=== PATIENT | female | born 1950 | race Caucasian/White ===

== ENCOUNTER 2022-11-05 01:51 | Day surgery (SDC) | payer MEDICARE, SELFPAY ==
--- NOTE | 2022-11-02 09:00 | PC.NURSE ---
Report to the Outpatient Waiting Room, entrance under the green pavilion located off [facility], at time __1130 on date __11/05/22 . Planned Procedure Time: _1330 . Time changes happen often and if your time is changed the preop area will call you the afternoon before. - You and your visitor will be asked to self-screen and do not enter if you have any COVID symptoms. - A mask is optional within the hospital at this time. Patients may have clear liquids (water, carbonated beverages, clear teas, apple juice) until 3 hours prior to surgery with a maximum of 20 ounces. - No food from midnight until time of surgery - Infants may have breast milk until 4 hours before surgery, formula 6 hours prior to surgery. - Children will be allowed to drink immediately following surgery. If applicable, please bring a bottle or sippy cup to assist with drinking. Juice, water, soda, and popsicles are readily available. For infants on formula, please bring formula the day of surgery. Pacifiers are allowed. Take the following medications with a SIP of water the morning of surgery: INHALER,LEVOTHYROXINE,LORAZEPAM,METOPROLOL, DO NOT STOP ANY OF YOUR OTHER PRESCRIPTION MEDICATIONS PRIOR TO SURGERY ?EXCEPT THE FOLLOWING Medications to discontinue per physician __PT STATES ASPIRIN 7_PRE OP PER DR GILL.LAST DOSE 10/28/22 Date to take last dose Please no make-up, nail hungarian, hairspray, perfume, deodorant, or body powder the day of surgery. No jewelry (including any body piercings) or valuables the day of surgery, leave them at home. Please take a shower or bath the night before, or the morning of, surgery with an antibacterial soap. Wear comfortable, loose fitting clothing. Children are encouraged to wear pajamas. - Jewelry must be removed prior to entering the operating room. Rings and piercings that are not removed may be cut off. - The hospital will not accept responsibility for valuables. - Please leave all valuables, including medications, at home the day of surgery. If you are going home after surgery, a licensed customer service driver must drive you home. - NO public transportation without another adult if you receive anesthesia. - We recommend that an adult stay with you for 24 hours following discharge. - We also recommend that you do not drive, make important decision, drink alcoholic beverages, or take any drugs that were not prescribed by your health care provider for at least 24 hours after your discharge time. For Pediatric surgeries, we recommend two adults accompany the child home. Follow any additional instructions given to you from your surgeon. If you or anyone in your household have experienced Covid symptoms in the past week, please notify your surgeon or the nurse liaison at the phone number below for possible testing. Telephone instructions given to __PATIENT and asked if any additional questions and then verbalized understanding. Patient advised to call surgeon office or pre surgery nurse liaison [phone] if any additional questions.
[2022-11-02 09:12] VITALS: BMI 36.1
[2022-11-05] VITALS (16 sets, daily range): BP systolic 111–128; BP diastolic 65–83; PULSE 65–85; RESP 16–20; TEMP 36.4–36.8; O2SAT 92–100
--- NOTE | ~2022-11-05 | XR_ITS ---
EXAMINATION: XR fluoroscopy no charge DATE: 11/05/2022 12:30 CDT INDICATION: STIMULATOR TIN ASSORTER PLACEMENT . TECHNIQUE: 5 fluoroscopic images of the cervical spine and thoracic spine were obtained during stimul ator division leader placement performed by the surgeon. I was not present in the operating room. Fluo roscopy exposure time was 12.8 seconds. Air Kerma 9.4761 mGy. DAP 0.1879 mGym2. COMPARISON: None FINDINGS: Lateral views of the cervical spine with skin retractors overlying the soft tissues, document stimula tor lead placement into the cervical canal, tip just inferior to the posterior arch of C1. Frontal vi ews of the thoracic spine with skin retractors over the soft tissues, instrument localization, likely of T9-10. Stimulator lead placement, tip terminating at the superior margin of a lower thoracic vert ebral body, likely T8. IMPRESSION: Fluoroscopic documentation of stimulator division leader placement. Please refer to the operative note for complete procedural details . Reviewed, dictated and finalized at location K.
--- NOTE | 2022-11-05 10:56 | WPDANESEPPF ---
Anes - Initial Pre Proc Eval Procedure: Operation Date: 11/05/22 11:30 Proposed Procedures p Dorsal Column Stimulator Lead and Generator Placement, Cervical and Thoracic - Bharat Aguilar MD Date/Time: 11/05/22 10:56 Surgeon: Bharat Aguilar MD Pre Op Diagnosis: chronic neck and back pain,s/p lumb fusion Patient Data Age: 72 Gender: F Height: 1.6 m Weight: 92.55 kg Allergies Allergy/AdvReac Type Severity Reaction Status Date / Time allopurinol Allergy Unknown Unknown Verified 11/05/22 10:18 morphine AdvReac Confusion Verified 11/05/22 10:18 Home Medications Medication Instructions Recorded Confirmed Type aspirin 81 mg tablet,delayed 81 mg PO DAILY 09/28/22 11/05/22 History release atorvastatin 80 mg tablet 80 mg PO DAILY 09/28/22 11/05/22 History empagliflozin 25 mg tablet 25 mg PO DAILY 09/28/22 11/05/22 History (Jardiance) febuxostat 40 mg tablet (Uloric) 40 mg PO DAILY 09/28/22 11/05/22 History fluticasone fur. 100 mcg-umeclid 1 inh inhalation DAILY 09/28/22 11/05/22 History 62.5 mcg-vilant 25 mcg inhalat.powder (Trelegy Ellipta) fluticasone propionate 50 1 spray intranasal DAILY 09/28/22 11/02/22 History mcg/actuation nasal spray,suspension furosemide 40 mg tablet (Lasix) 40 mg PO QAM 09/28/22 11/05/22 History glimepiride 4 mg tablet (Amaryl) 4 mg PO QAM 09/28/22 11/05/22 History hydrochlorothiazide 12.5 mg capsule 12.5 mg PO DAILY 09/28/22 11/05/22 History ibandronate 150 mg tablet (Boniva) 150 mg PO MONTHLY 09/28/22 11/05/22 History ipratropium 0.5 mg-albuterol 3 mg 3 ml inhalation Q4H PRN Shortness 09/28/22 11/02/22 History (2.5 mg base)/3 mL nebulization Of Breath soln ipratropium 18 mcg-albuterol 103 2 spray inhalation PRN PRN 09/28/22 11/05/22 History mcg/actuation aerosol inhaler Shortness Of Breath lorazepam 0.5 mg tablet (Ativan) 0.5 mg PO TID PRN Anxiety 09/28/22 11/05/22 History losartan 50 mg tablet 50 mg PO DAILY 09/28/22 11/05/22 History metformin 500 mg tablet 500 mg PO TID 09/28/22 11/05/22 History metoprolol tartrate 50 mg tablet 50 mg PO BID 09/28/22 11/05/22 History montelukast 10 mg tablet 10 mg PO DAILY 09/28/22 11/05/22 History nitroglycerin 0.4 mg sublingual 0.4 mg sublingual Q5M PRN Chest 09/28/22 11/02/22 History tablet Pain pantoprazole 40 mg tablet,delayed 40 mg PO QAM 09/28/22 11/05/22 History release paroxetine HCl 30 mg tablet (Paxil) 30 mg PO HS 09/28/22 11/05/22 History tizanidine 2 mg tablet 2 mg PO TID PRN Muscle Spasm 09/28/22 11/05/22 History hydrocodone 7.5 mg-ibuprofen 200 1 tablet PO Q6-8H PRN Pain 11/02/22 11/02/22 History mg tablet levothyroxine 50 mcg tablet 50 mcg PO DAILY 11/02/22 11/05/22 History Patient hx anesthesia problems: none Family hx anesthesia problems: none Results Review: All pre-operative results and documents have been reviewed as part of the pre-operative evaluation. [facility] Past Medical History Medical History (Updated 09/28/22 @ 14:43 by Hannah Dixon) Anxiety Arthritis Asthma COPD (chronic obstructive pulmonary disease) Coronary artery disease Diabetes Diverticulosis Heart attack Heart disease Hypertension Osteopenia Thyroid disorder Family History Family History (Updated 09/28/22 @ 14:58 by Hannah Dixon) Father Hypertension Depression Heart disease Alcoholism Mother Asthma Social History Social History (Updated 09/28/22 @ 14:59 by Hannah Dixon) Smoking status: Never smoker Second hand tobacco smoke exposure: No Alcohol intake: never Substance use: never Lack of Transportation: No Lack of Food: Never True Current Housing: I Have Housing Living arrangements: with family Spiritual care concerns: No Anes - Eval Final PreProcedure Day of Procedure 11/05/22 10:56 Patient weight: obese Airway: Mallampati scale class III ASA classification: III Anesthesia type and monitoring: general ETT and standard monitoring Results Review:
[2022-11-05] MEDS: LACTATED RINGERS 1,000 ML 30 ML IV CONT (11:00)
--- NOTE | 2022-11-05 11:00 | PM.IMHP ---
H&P: HPI History of Present Illness Date/Time: 11/05/22 11:00 Chief Complaint: Valeria is a 72-year-old female with neck arm back and leg pain that responded well dorsal column stimulator but within the cervical and thoracic spine presents for implantation of devices in both locations with either 1 or 2 generator is a. She has not changed appreciably since we last saw her. She does not have specific muscle group weakness or dermatomal numbness. She does not have any bowel or bladder difficulty. Review of Systems Review of Systems: Patient denies shortness of breath, cough, fever, chills, nausea, vomiting, weight loss, weight gain, chest pain, dysuria. She has back and leg as well as neck and arm pain as above. Her review of systems is otherwise negative on 12 systems except as noted elsewhere. [facility] Past Medical History Medical History (Updated 09/28/22 @ 14:43 by Hannah Dixon) Anxiety Arthritis Asthma COPD (chronic obstructive pulmonary disease) Coronary artery disease Diabetes Diverticulosis Heart attack Heart disease Hypertension Osteopenia Thyroid disorder Family History Family History (Updated 09/28/22 @ 14:58 by Hannah Dixon) Father Hypertension Depression Heart disease Alcoholism Mother Asthma Social History Social History (Updated 09/28/22 @ 14:59 by Hannah Dixon) Smoking status: Never smoker Second hand tobacco smoke exposure: No Alcohol intake: never Substance use: never Lack of Transportation: No Lack of Food: Never True Current Housing: I Have Housing Living arrangements: with family Spiritual care concerns: No Meds Home Medications and Allergies Home Medications Medication Instructions Recorded Confirmed Type aspirin 81 mg tablet,delayed 81 mg PO DAILY 09/28/22 11/05/22 History release atorvastatin 80 mg tablet 80 mg PO DAILY 09/28/22 11/05/22 History empagliflozin 25 mg tablet 25 mg PO DAILY 09/28/22 11/05/22 History (Jardiance) febuxostat 40 mg tablet (Uloric) 40 mg PO DAILY 09/28/22 11/05/22 History fluticasone fur. 100 mcg-umeclid 1 inh inhalation DAILY 09/28/22 11/05/22 History 62.5 mcg-vilant 25 mcg inhalat.powder (Trelegy Ellipta) fluticasone propionate 50 1 spray intranasal DAILY 09/28/22 11/02/22 History mcg/actuation nasal spray,suspension furosemide 40 mg tablet (Lasix) 40 mg PO QAM 09/28/22 11/05/22 History glimepiride 4 mg tablet (Amaryl) 4 mg PO QAM 09/28/22 11/05/22 History hydrochlorothiazide 12.5 mg capsule 12.5 mg PO DAILY 09/28/22 11/05/22 History ibandronate 150 mg tablet (Boniva) 150 mg PO MONTHLY 09/28/22 11/05/22 History ipratropium 0.5 mg-albuterol 3 mg 3 ml inhalation Q4H PRN Shortness 09/28/22 11/02/22 History (2.5 mg base)/3 mL nebulization Of Breath soln ipratropium 18 mcg-albuterol 103 2 spray inhalation PRN PRN 09/28/22 11/05/22 History mcg/actuation aerosol inhaler Shortness Of Breath lorazepam 0.5 mg tablet (Ativan) 0.5 mg PO TID PRN Anxiety 09/28/22 11/05/22 History losartan 50 mg tablet 50 mg PO DAILY 09/28/22 11/05/22 History metformin 500 mg tablet 500 mg PO TID 09/28/22 11/05/22 History metoprolol tartrate 50 mg tablet 50 mg PO BID 09/28/22 11/05/22 History montelukast 10 mg tablet 10 mg PO DAILY 09/28/22 11/05/22 History nitroglycerin 0.4 mg sublingual 0.4 mg sublingual Q5M PRN Chest 09/28/22 11/02/22 History tablet Pain pantoprazole 40 mg tablet,delayed 40 mg PO QAM 09/28/22 11/05/22 History release paroxetine HCl 30 mg tablet (Paxil) 30 mg PO HS 09/28/22 11/05/22 History tizanidine 2 mg tablet 2 mg PO TID PRN Muscle Spasm 09/28/22 11/05/22 History hydrocodone 7.5 mg-ibuprofen 200 1 tablet PO Q6-8H PRN Pain 11/02/22 11/02/22 History mg tablet levothyroxine 50 mcg tablet 50 mcg PO DAILY 11/02/22 11/05/22 History Allergies Allergy/AdvReac Type Severity Reaction Status Date / Time allopurinol Allergy Unknown Unknown Verified 11/05/22 10:18 morphine AdvReac Confusion
--- NOTE | 2022-11-05 11:02 | WPDHPUPDATE1 ---
History and Physical Update Update Date/Time: 11/05/22 11:02 History and Physical has been reviewed, including an updated exam of the patient. There are NO changes in the patient's condition. Risks, benefits, and alternatives have been discussed and questions answered. Patient agrees to proceed with procedure.
[2022-11-05 11:37] LABS: Anion Gap 6 mmol/L (8-16); Blood Urea Nitrogen 13 mg/dL (7-17); Calcium 8.9 mg/dL (8.4-10.2); Carbon Dioxide 28 mmol/L (22-30); Chloride 104 mmol/L (98-107); Estimated CRCL calculation 79 ml/min; Estimated Glomerular Filt Rate > 60; Glucose 89 mg/dL (65-110); Potassium 3.8 mmol/L (3.4-5.0); Sodium 138 mmol/L (137-145)
[2022-11-05] MEDS: ceFAZolin 2 GM/D5W 50 ML 2 GM/50 ML BAG IVPB (11:43)
[2022-11-05 11:52] LABS: Hemoglobin A1C 7.4 % (<5.7)
[2022-11-05] MEDS: VANCOMYCIN HCL 1,000 MG VIAL 1000 MG TOPICAL (12:47)
[2022-11-05] MEDS: LIDO 1%/EPINEPHRINE 1:100,000 50 ML VIAL INFILTRATE (12:48)
[2022-11-05 15:04] LABS: Glucose Point of Care 115 mg/dl (65-105)
[2022-11-05] MEDS: fentaNYL CITRATE INJ (*CRX) 100 MCG/2 ML VIAL 25 MCG IV PUSH ×4 (15:18→15:50)
--- NOTE | 2022-11-05 16:33 | ADMGEN ---
This patient, Valeria Valles, was admitted to Medical Room 241-01. Patient/family oriented to hospital policies and general routines including ID bracelet, bed and alarms, visiting hours, pain management, procedures, bathroom and other care routines, personal items, smoking policy, room service/diet, and visiting hours. Information on how to activate the Rapid Response Team has been discussed. Patient/Family are encouraged to report perceived risks to care and to ask questions if they do not understand what they are told or what they should do.
[2022-11-05] MEDS: KCL 20 MEQ/D5/0.45% SOD CHL 1,000 ML 100 ML IV CONT (17:14)
[2022-11-05] MEDS: HYDROcodone/acetaminophen (*CRX) 10-325 MG TABLET 1 TAB PO ×2 (17:27→22:28)
[2022-11-05 17:53] LABS: Glucose Point of Care 168 mg/dl (65-105)
[2022-11-05] MEDS: DOCUSATE SODIUM 100 MG CAPSULE PO (20:09)
[2022-11-05] MEDS: metFORMIN HCL 500 MG TABLET PO (20:09)
[2022-11-05] MEDS: METOPROLOL TARTRATE 50 MG TAB PO (20:11)
[2022-11-05] MEDS: PARoxetine 10 MG TABLET 30 MG PO (20:13)
[2022-11-05 21:06] LABS: Glucose Point of Care 291 mg/dl (65-105)
[2022-11-06 03:29] VITALS: BP 125/76; PULSE 77; RESP 20; TEMP 36; O2SAT 98
[2022-11-06] MEDS: HYDROcodone/acetaminophen (*CRX) 10-325 MG TABLET 1 TAB PO ×2 (05:57→09:32)
[2022-11-06] MEDS: LEVOTHYROXINE SODIUM 50 MCG TABLET PO (06:00)
[2022-11-06 08:00] VITALS: O2SAT 98
[2022-11-06] MEDS: CYCLOBENZAPRINE HCL 10 MG TABLET PO (08:10)
[2022-11-06 08:20] LABS: Glucose Point of Care 104 mg/dl (65-105)
[2022-11-06] MEDS: ATORVASTATIN 40 MG TABLET 80 MG PO (09:32)
[2022-11-06] MEDS: FEBUXOSTAT 40 MG TABLET PO (09:33)
[2022-11-06] MEDS: EMPAGLIFLOZIN 25 MG TABLET PO (09:33)
[2022-11-06] MEDS: DOCUSATE SODIUM 100 MG CAPSULE PO (09:33)
[2022-11-06] MEDS: FUROSEMIDE 40 MG TABLET PO (09:33)
[2022-11-06 09:34] VITALS: PULSE 70
[2022-11-06] MEDS: LOSARTAN POTASSIUM 50 MG TABLET PO (09:34)
[2022-11-06] MEDS: METOPROLOL TARTRATE 25 MG TABLET PO (09:34)
[2022-11-06] MEDS: metFORMIN HCL 500 MG TABLET PO (09:34)
[2022-11-06] MEDS: GLIMEPIRIDE 2 MG TABLET 4 MG PO (09:34)
[2022-11-06] MEDS: hydroCHLOROthiazide 12.5 MG CAPSULE PO (09:34)
[2022-11-06] MEDS: PANTOPRAZOLE 40 MG TABLET PO (09:35)
[2022-11-06] MEDS: MONTELUKAST SODIUM 10 MG TABLET PO (09:35)
[2022-11-06] MEDS: FLUTICASONE/UMECLIDIN/VILANTER 100-62.5-25 MCG ELLIPTA 1 PUFF INHALATION (09:49)
--- NOTE | 2022-11-16 09:27 | W.PM.PROC2 ---
Procedure Note - Detailed Date of Procedure 11/16/22 Pre-op Diagnosis chronic neck and back pain,s/p lumb fusion Post-op Diagnosis Same Procedure Performed Placement of dorsal column stimulator lead and generator, cervical and thoracic Surgeon Bharat Aguilar MD Anesthesia General Description of Procedure The patient was brought to the operating room in the supine position, was sedated, intubated and placed under general anesthesia in routine fashion. She was then turned into the prone position on gel rolls with the head placed in Pen[place]za head of art. The area of operation the back of the neck, the back the thoracic spine and the left flank were examined, marked for incision, prepped and draped in routine sterile fashion. Incision in the thoracic spine was based on the T10 pedicles. These areas were injected with 0.5% lidocaine with [id number] epinephrine. Intravenous antibiotics given prior to incision. Incisions were made with a 10 blade scalpel. at the flank a pocket was created 1 cm deep in the tissue using curved Snyder scissors and toothed forceps. Bleeding was stopped with bipolar cautery. At the cervical and thoracic incisions subperiosteal dissection of the muscle soft tissue away from the spinous processes and lamina was performed with a subperiosteal elevator and Bovie cautery. Verifying x-rays of to were obtained to verify levels of operation. In the cervical spine laminectomies were performed using a Leksell rongeur, Kerrison punches and curved curettes until a short wide area the dura was uncovered at C2-3, C3-4 and C4-5. the lead was then guided into the dorsal epidural space until was confirmed we behind the C2-3 4 vertebral bodies in the midline. At the thoracic incision likewise a laminectomy was performed at T9-10 using a Leksell rongeur, curved curettes and Kerrison punches until a short but wide area the dura was uncovered. Second laminectomy was performed 1 level up in like fashion. The lead was then placed into the dorsal epidural space after scar was broken until was confirmed to be in the midline behind the T8 and T9 vertebral bodies with the tops lead being at the top of T8. Anchors were attached to 1 of the wires at both leads which was attached to the superior spinous process using a 3-0 Prolene suture. Tension relief loops were placed and the wires which were then very to the flank incision. Here they were inserted into the generator slots and secured the using a small screwdriver for that purpose. Impedance testing was carried out to confirm good connectivity which was confirmed. The generator was then placed in the pocket after copious irrigation with bacitracin irrigation and with excess wire coiled up underneath it and with vancomycin impregnated pellets placed around the device. The rest of the pellets were placed above and below the fascia at the other 2 incisions. Cervical thoracic fascia was closed with 2-0 Vicryl interrupted sutures. All incisions were closed with 3-0 Vicryl buried interrupted sutures in the dermis and a running 4-0 Monocryl subcuticular stitch in the skin were dressed with Dermabond. The patient was then turned into the supine position on hospital bed was loud, from general anesthesia in the operating room was taken to the recovery room in stable condition. There were no immediate complications of this operation. All counts reported correct in the case. Blood loss was 200 cc. The patient was neurologically at her baseline postoperatively. Estimated Blood Loss -200.0 IV Fluids 1,500 Urine Output 500 Drains No Complications None Condition Stable Disposition PACU [facility] Billing Surgery - Charge Forward: Surgery Billing
== END 2022-11-06 11:30 | disposition home or self-care (01) ==
LOC: ANHSURGERY 08:47 → ANH2MED 15:33
PROVIDERS: Visit Provider Neurological Surgery
PROC: (CPT 63655; principal; 2022-11-05 11:30)
DX: M54.9 Dorsalgia, unspecified (principal); M54.2 Cervicalgia; G89.29 Other chronic pain; J44.9 Chronic obstructive pulmonary disease, unspecified; I25.10 Atherosclerotic heart disease of native coronary artery without angina pectoris; E11.9 Type 2 diabetes mellitus without complications; I11.9 Hypertensive heart disease without heart failure; I25.2 Old myocardial infarction; E07.9 Disorder of thyroid, unspecified; F41.9 Anxiety disorder, unspecified; Z79.84 Long term (current) use of oral hypoglycemic drugs; Z79.82 Long term (current) use of aspirin; Z79.51 Long term (current) use of inhaled steroids; Z98.1 Arthrodesis status; E66.9 Obesity, unspecified; Z68.36 Body mass index [BMI] 36.0-36.9, adult
CPT/HCPCS: 63655; 63685; 36415; 80048; 82948; 83036; 86850; 86900; 86901; 97161; 97165; 97530; 97535; 99199; A9270; J0690; J1100; J2405; J2704; J3010; J3370; J3480; J7120